=== PATIENT | female | born 1985 | race Caucasian/White ===

== ENCOUNTER 2022-11-21 13:03 | Emergency (ER) | payer OTHER ==
[~2022-11-21] VITALS: Ht 160 cm; Wt 68.0 kg
== END 2022-11-21 17:49 | disposition home or self-care (01) ==
LOC: ER 13:03
DX: M54.2 Cervicalgia (principal); V43.62XA Car passenger injured in collision with other type car in traffic accident, initial encounter; Y93.89 Activity, other specified; Y92.413 State road as the place of occurrence of the external cause